=== PATIENT | female | born 1980 | race Two or more races ===

== ENCOUNTER 2016-10-13 10:24 | Emergency (ER) | payer MEDICAID ==
[~2016-10-13] VITALS: Ht 154.9 cm; Wt 84.0 kg
[2016-10-13] MEDS ORDERED: SUMATRIPTAN 50 MG TABLET PO PRN (12:00)
[2016-10-13] MEDS ORDERED: ONDANSETRON ODT 4 MG PO ONE (12:00)
[2016-10-13] MEDS ORDERED: ONDANSETRON ODT 8 MG ONE (12:01)
[2016-10-13 14:16] VITALS: BP 137/85
== END 2016-10-13 14:18 | disposition home or self-care (01) ==
LOC: ED 12:36
DX: G43.909 Migraine, unspecified, not intractable, without status migrainosus (principal); F41.1 Generalized anxiety disorder
CPT/HCPCS: 99283; Q0162

== ENCOUNTER 2020-01-10 14:39 | Emergency (ER) | payer MEDICAID ==
[~2020-01-10] VITALS: Ht 154.9 cm; Wt 76.9 kg
[2020-01-10 16:00] VITALS: BP 125/80
--- NOTE | 2020-01-10 16:32 | NUR ---
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
[2020-01-10 16:51] LABS: BASOPHILS # (AUTO) 0.03 x10^3/uL (0-0.1); BASOPHILS % (AUTO) 0 % (0-1); EOSINOPHILS % (AUTO) 0 % (1-7); LYMPHOCYTES # (AUTO) 1.57 x10^3/uL (1-3.4); LYMPHOCYTES % (AUTO) 18 % (22-44); MD NO; MEAN CORPUSCULAR HEMOGLOBIN 31.2 pg (27.0-34.8); MEAN CORPUSCULAR HGB CONC 33.4 g/dL (32.4-35.8); MEAN CORPUSCULAR VOLUME 93.4 fL (80-100); MEAN PLATELET VOLUME 7.7 fL (7.4-10.4); MONOCYTES # (AUTO) 0.35 x10^3/uL (0.2-0.8); MONOCYTES % (AUTO) 4 % (2-9); NEUTROPHILS # (AUTO) 6.71 x10^3/uL (1.8-6.8); NEUTROPHILS % (AUTO) 78 % (42-75); PLATELET COUNT 361 x10^3/uL (130-400); RED BLOOD COUNT 4.54 x10^6/uL (3.82-5.3); RED CELL DISTRIBUTION WIDTH 15.5 % (9.6-15.2)
[2020-01-10 16:55] LABS: ALANINE AMINOTRANSFERASE 20 U/L (12-78); ALBUMIN 3.9 g/dL (3.4-5.0); ANION GAP 5 mmol/L (5-15); CALCIUM 8.8 mg/dL (8.5-10.1); CHLORIDE 108 mmol/L (98-107); CREATININE 0.92 mg/dL (0.55-1.02)
[2020-01-10 16:57] LABS: ALKALINE PHOSPHATASE 102 U/L (45-117); BILIRUBIN,TOTAL 0.3 mg/dL (0.2-1.0); TOTAL PROTEIN 8.3 g/dL (6.4-8.2)
--- NOTE | 2020-01-10 16:57 | NUR ---
"MY DAUGHTER RAN AWAY 4 DAYS AGO, YESTERDAY I STARTED FEELING DIZZY AND HAVING VERTIGO, MY MOUTH FEELS NUMB, WE FOUND HER BUT THIS FEELING IS STILL THERE" PT IN BED ON CONT PAYROLL CLERK, SPO2, BP Q 30 MIN, SIDE RAILS UP X2, CALL LIGHT IN REACH. FRIEND IN ROOM. AWAITNG TO SEE.
== END 2020-01-10 18:00 | disposition home or self-care (01) ==
LOC: ED 17:00
DX: F41.1 Generalized anxiety disorder (principal); R42 Dizziness and giddiness; G43.909 Migraine, unspecified, not intractable, without status migrainosus
CPT/HCPCS: 36415; 80053; 85025; 93005; 99284